=== PATIENT | female | born 1965 | race Caucasian/White ===

== ENCOUNTER 2017-03-21 21:25 | Emergency (ER) | payer MEDICARE, BC ==
[~2017-03-21 21:25] MED LIST: BUPROPION XL300 MG PO; CELEBREX PO; CELEBREX50 MG; CIPRO PO; CLINORIL PO; COLACE PO; DICLOFENAC; FLAGYL; FLAGYL PO; GABAPENTIN600 MG PO; IBUPROFEN PO; JOINT PAIN MED; KADIAN30 MG PO; LEVAQUIN; LORTAB 7.5-5001 TAB PO; MACROBID 100 M100 MG PO; MOBIC PO; NEURONTIN PO; OPANA ER40 MG PO; OPANA IR PO; OXYCODONE HCL30 MG PO; PERCOCET10 PO; PHENERGAN PO; PHILLIPS' MILK311 MG PO; PLAQUENIL200 MG PO; PREDFORTE; PRILOSEC PO; PRINIVIL10 MG PO; SKELAXIN PO; STEROID EYE; STOOL SOFTENER; SYNTHROID PO; TOPAMAX25 MG PO; ULTRAM PO; VICODIN 5/500 T1 TAB PO; [UNRECOGNIZED DRUG - OTHER]
== END 2017-03-21 21:28 | disposition home or self-care (01) ==
LOC: SED 21:25
DX: K64.9 Unspecified hemorrhoids (principal); F17.210 Nicotine dependence, cigarettes, uncomplicated; Z91.040 Latex allergy status
CPT/HCPCS: 99282

== ENCOUNTER 2017-04-09 16:21 | Emergency (ER) | payer MEDICARE, BC ==
--- NOTE | ~2017-04-09 | CR72 ---
[facility]. [facility] A Service of [facility] & [facility] RADIOLOGY TEXT RESULTS PATIENT: MONISHA ALVARES LOCATION: SED : 67 UNIT #: [id number] AGE: [address]: James Frank SEX: F ORDER DR: [id number] [place] [id number] E MR#: [id number] Acc #: [id number] NAME: MONISHA ALVARES : 1965 SEX: F STUDY DATE/TIME: 04/09/2017 16:54 UNIT: SED ROOM: STUDY DESCRIPTION: CR Chest Single View Portable Attending Physician: James Frank P.A.-C. Referring Physician: James Frank P.A.-C. Ordering Physician: Rudi Valencia M.D. Primary Care Physician: Corby Morin M.D. MEDICAL IMAGING REPORT This report is preliminary unless electronic signature is present. EXAM Portable chest x-ray, 04/09/2017 HISTORY Chest pain, short of air x3 days. FINDINGS AP radiograph of the chest is presented. Comparison 05/18/2016. The heart lkrxur-xk-ekfwy limits of normal in size. Stable. Lungs well inflated. No evidence of acute infectious or inflammatory disease. No pleural effusion or pneumothorax. No suspicious nodule. The bony structures are unremarkable. Dictated by... James Orr M.D. THIS IS AN ELECTRONICALLY VERIFIED REPORT James Orr M.D. at 04/10/2017 10:26 PM JOSÉ MIGUEL/escobar TD: 04/09/2017 23:47 JOB #: [id number] MEDICAL IMAGING REPORT Page 1 of 1
--- NOTE | ~2017-04-09 | EKG ---
PATIENT: MONISHA ALVARES UNIT #: [id number] Ventricular Rate: 80 BPM Atrial Rate: 80 BPM P-R Interval: 156 ms QRS Duration: 78 ms Q-T Interval: 384 ms QTC Calculation(Bezet): 442 ms P [place]: 51 degrees Calculated R [place]: -25 degrees Calculated T [place]: 22 degrees Diagnosis Line: Normal sinus rhythm Diagnosis Line: Normal ECG Diagnosis Line: When compared with ECG of 18-MAY-2016 17:24, Diagnosis Line: No significant change was found Diagnosis Line: Confirmed by REBEKAH HERNANDEZ MD ([id number]) on 04/11/2017 Diagnosis Line: 5:49:26 PM INTERPRETING MD: DAVID MAURICIO
--- NOTE | ~2017-04-09 | CT16 ---
[facility] A Service of [facility] RADIOLOGY TEXT RESULTS PATIENT: MONISHA ALVARES LOCATION: SED : 67 UNIT #: [id number] AGE: [address]: James Frank SEX: F ORDER DR: [id number] [place] [id number] MR#: [id number] Acc #: [id number] NAME: MONISHA ALVARES : 1965 SEX: F STUDY DATE/TIME: 04/09/2017 17:55 UNIT: SED ROOM: STUDY DESCRIPTION: CT Angio Chest for PE Attending Physician: James Frank P.A.-C. Referring Physician: James Frank P.A.-C. Ordering Physician: James Frank P.A.-C. Primary Care Physician: Corby Morin M.D. MEDICAL IMAGING REPORT This report is preliminary unless electronic signature is present. EXAM CTA chest PE protocol INDICATION Elevated D-dimer level. Shortness of air and cough for the past 3 days. PROCEDURE Contrast-enhanced CTA of the chest attention on opacification of the pulmonary arteries. Coronal 3-D MIP sagittal reformatted images are reconstructed and submitted. 80 mL of Isovue-[address] exam was performed with one or more of the following radiation dose reduction techniques: automatic exposure control, adjustment of mA and/or kV according to patient size, and iterative reconstruction. COMPARISON None. FINDINGS Suboptimal contrast bolus. There is no evidence for a large central pulmonary embolus. Difficult to evaluate for small, more peripheral pulmonary emboli. Aorta has normal caliber. No adenopathy. The lungs are clear. No pleural fluid. No pneumothorax. No acute findings in the included upper abdomen. No aggressive-appearing bone lesion. IMPRESSION Suboptimal contrast bolus but no evidence for a large central pulmonary embolus. The lungs are clear. Dictated by... [facility] A Service [facility] RADIOLOGY TEXT RESULTS PATIENT: MONISHA ALVARES LOCATION: SED : 67 UNIT #: [id number] AGE: [address]: James Frank SEX: F ORDER DR: Curtis Ortiz M.D. THIS IS AN ELECTRONICALLY VERIFIED REPORT Curtis Ortiz M.D. at 04/10/2017 7:36 AM EDWIGED/escobar TD: 04/09/2017 23:48 JOB #: [id number] MEDICAL IMAGING REPORT Page 1 of 1
[2017-04-09 16:55] LABS: BASOPHIL# 0.2 X10e3 (0-0.3); BASOPHIL% 1.3 % (0-2.5); EOSINOPHIL# 0.1 X10e3 (0-0.7); EOSINOPHIL% 0.9 % (0.0-7.0); HEMATOCRIT 47.2 % (35.0-45.0); HEMOGLOBIN 15.5 gm/dL (12.0-16.0); LYMPHOCYTE# 3.7 X10e3 (1.0-3.5); LYMPHOCYTE% 24.2 % (17.0-45.0); MEAN CELL VOLUME 84.1 FL (83-96); MEAN CORPUSCULAR HEMOGLOBIN 27.7 PG (28-34); MEAN CORPUSCULAR HGB CONC 32.9 g/dL (30-36); MONOCYTE# 0.6 X10e3 (0-1.0); MONOCYTE% 4.2 % (3.0-12.0); NEUTROPHIL# 10.5 X10e3 (1.5-7.1); NEUTROPHIL% 69.4 % (40-75); PLATELET COUNT 310 X10e3 (140-420); RED BLOOD COUNT 5.61 X10e (3.90-5.30); RED CELL DISTRIBUTION WIDTH 14.9 % (11.0-15.5); WHITE BLOOD COUNT 15.2 X10e3 (4.0-10.5)
[2017-04-09 17:05] LABS: INR 1.1
[2017-04-09 17:10] LABS: DIFF IND NO
[2017-04-09 17:11] LABS: POC - CKMB 1.6 ng/mL (0.0-7.9); POC - TROPONIN <0.05 ng/mL (<=0.05)
[2017-04-09 17:15] LABS: ALBUMIN SERUM 4.1 g/dL (3.5-5.0); BILIRUBIN, DIRECT 0.1 mg/dL (0.0-0.2); BILIRUBIN,INDIRECT 0.7 mg/dL (0.0-0.9); BILIRUBIN,TOTAL 0.8 mg/dL (0.2-2.0); CALCIUM SERUM 8.8 mg/dL (8.4-10.2); CREATININE SERUM 0.5 mg/dL (0.6-1.4); GLOM FILT RATE Estimated 112.9 mL/min (>60); POTASSIUM 3.7 mmol/L (3.5-5.1); PROTEIN TOTAL SERUM 7.1 g/dL (6.0-8.3)
== END 2017-04-09 19:44 | disposition home or self-care (01) ==
LOC: SED 16:21
PROVIDERS: Emergency Medicine; Physician Assistant
DX: J20.9 Acute bronchitis, unspecified (principal); I25.2 Old myocardial infarction; Z91.040 Latex allergy status; F17.210 Nicotine dependence, cigarettes, uncomplicated
CPT/HCPCS: 36415; 71010; 71275; 80048; 80076; 82553; 83880; 84484; 85025; 85379; 85610; 85730; 93005; 94640; 99284; Q9967

== ENCOUNTER → 2017-06-27 | Outpatient (CLI) | payer MEDICARE, BC ==
--- NOTE | ~2017-06-27 | NM8 ---
[facility] A Service of [facility] & [facility] RADIOLOGY TEXT RESULTS PATIENT: MONISHA ALVARES LOCATION: [facility] : 67 UNIT #: [id number] AGE: [address]: Meng Singh MD SEX: F ORDER DR: [id number] [facility] [address] [place], [place] [address] [id number] O MR#: [id number] Acc #: [id number] NAME: MONISHA ALVARES : 1965 SEX: F STUDY DATE/TIME: 06/27/2017 12:40 UNIT: [facility] ROOM: STUDY DESCRIPTION: FL Bone or Joint Whole Body Attending Physician: Meng Singh M.D. Referring Physician: Meng Singh M.D. Ordering Physician: Meng Singh M.D. Primary Care Physician: Corby Morin M.D. MEDICAL IMAGING REPORT This report is preliminary unless electronic signature is present EXAM Whole-body bone scan HISTORY 51-year-old female diagnosed with lupus in 1992, complains of multifocal pain to include spine, shoulders, elbows, feet, knees and hands. COMPARISON CT chest, 04/09/2017. TECHNIQUE Whole-body and selected spot images were performed of the axial and appendicular skeleton following intravenous administration of 32.2 mCi Tc-99m MDP. FINDINGS Examination demonstrates increased uptake involving the right sternoclavicular joint, left anterior hip fifth rib, both knees involving both the medial and lateral compartment of the left knee, and predominately medial compartment of the right knee. Uptake is also seen within the midfoot bilaterally, right greater than left. No significant increased uptake within the hands or wrists. Elbow and shoulder joints also unremarkable. The visualized spine appears normal. Bilateral renal activity and normal bladder activity noted. Symmetric uptake about the hips. IMPRESSION 1. Increased uptake within the right sternoclavicular joint. This is most likely degenerative in nature, however review of the patient's recent chest CT 04/09/2017 revealed no significant arthritic change. Correlate with patient's clinical presentation. 2. Increased uptake in the anterior left fifth rib, most likely STS. [facility] A Service of [facility] & [facility] RADIOLOGY TEXT RESULTS PATIENT: MONISHA ALVARES LOCATION: [facility] : 67 UNIT #: [id number] AGE: [address]: Meng Singh MD SEX: F ORDER DR: post-traumatic in nature. 3. Presumed degenerative uptake within both knees, left greater than right, with involvement of the medial and lateral compartment of the left knee and medial compartment of the right knee. Degenerative uptake also noted within both feet, most prominent within the right foot. Given the relatively intense uptake within the right midfoot, correlation with conventional radiographs may be warranted to exclude other pathology but again this most likely degenerative in nature. Dictated by... Bridget Baez M.D. THIS IS AN ELECTRONICALLY VERIFIED REPORT Bridget Baez M.D. at 06/28/2017 4:49 PM Rich TD: 06/27/2017 20:43 JOB #: [id number] MEDICAL IMAGING REPORT Page 1 of 1 COPY
== END | disposition home or self-care (01) ==
LOC: CNUC 08:47
DX: M32.10 Systemic lupus erythematosus, organ or system involvement unspecified (principal); R94.8 Abnormal results of function studies of other organs and systems
CPT/HCPCS: 78306; A9503